=== PATIENT | female | born 1965 | race Caucasian/White ===

== ENCOUNTER → 2019-05-14 | Outpatient (CLI) | payer SELFPAY ==
--- NOTE | 2019-05-14 11:04 | Diagnostic Imaging Report ---
PROCEDURE: MR imaging cervical spine without contrast. TECHNIQUE: Multiplanar, multisequence MR imaging of the cervical spine was performed without contrast. INDICATION: Chronic shoulder pain. COMPARISON: No prior studies are available for comparison. FINDINGS: Curvature of the cervical spine is normal. There is minimal retrolisthesis of C5 on C6. Vertebral body marrow signal is normal. No marrow lesion is identified. There is generalized degenerative disc disease with variable disc space narrowing and desiccation, greatest at C5-C6 level. Cervical cord demonstrates homogeneous signal intensity and normal morphology. Craniocervical junction demonstrates some mild cerebellar tonsillar ectopia. C2-C3: Central canal and neural foramina are widely patent. C3-C4: Central canal and neural foramina appear widely patent. C4-C5: Minimal endplate osteophytes flatten the ventral thecal sac but central canal and neural foramina appear patent. C5-C6: Broad-based disc/osteophyte complex indents the ventral thecal sac and produces moderate central canal stenosis. Uncovertebral joint degenerative change also results in significant bilateral neural foraminal stenosis. C6-C7: Endplate osteophytes indent the ventral thecal sac. There is mild narrowing of the canal. There appears to be a fairly significant bilateral neural foraminal stenosis. C7-T1: No central canal or neural foraminal stenosis is identified. IMPRESSION: C5-C6 degenerative disc disease with fairly significant central canal and bilateral neural foraminal stenosis. There is also bilateral neural foraminal stenosis at C6-C7. Dictated by: Dictated on workstation # [id number]
== END ==
LOC: RAD 09:26
PROVIDERS: ATTEND Nurse Practitioner
DX: M25.519 Pain in unspecified shoulder (principal); G89.29 Other chronic pain; M48.02 Spinal stenosis, cervical region; M50.30 Other cervical disc degeneration, unspecified cervical region; R20.0 Anesthesia of skin
CPT/HCPCS: 72141

== ENCOUNTER → 2019-08-20 | Outpatient (CLI) | payer SELFPAY ==
[~2019-08-20] MED LIST: CATHETER FLUSH 10 ML SYR IV PRN; HOLD METFORMIN - RECEIVED CONTRAST 20 ML VIAL IV SCH; IOHEXOL 350 MG/ML 100 ML (OMNIPAQUE 350) VIAL IV ONE; NS 100 ML (IVPB) BAG IV ONE
[2019-08-20 13:41] LABS: POTASSIUM 3.9 MMOL/L (3.6-5.0)
[2019-08-20 13:42] LABS: ALBUMIN 4.3 GM/DL (3.2-4.5); BILIRUBIN,TOTAL 0.5 MG/DL (0.1-1.0); CALCIUM 10.1 MG/DL (8.5-10.1); CREATININE SERUM 1.12 MG/DL (0.60-1.30); TOTAL PROTEIN 8.1 GM/DL (6.4-8.2)
--- NOTE | 2019-08-20 15:32 | Diagnostic Imaging Report ---
PROCEDURE: CT abdomen and pelvis with contrast. TECHNIQUE: Multiple contiguous axial images were obtained through the abdomen and pelvis after administration of intravenous contrast. Auto Exposure Controls were utilized during the CT exam to meet ALARA standards for radiation dose reduction. INDICATION: Left lower quadrant pain two days duration, elevated temperature. FINDINGS: There is focal patchy hypodensity and hypoenhancement in the lower pole of the left kidney without a discrete fluid collection most suggestive of focal pyelonephritis. The interpolar and upper pole of the left kidney as well as contralateral right kidney appear normal. No radiodense stone at this post contrast enhanced study and no hydronephrosis. There is diverticulosis of the sigmoid colon but no convincing evidence for diverticulitis. Some mild left perinephric edema extends inferior to the left kidney. There is thickening of Gerota's fascia. The liver appears unremarkable. An incidental variant with Phrygian cap at the gallbladder fundus noted. No gallstone or bile duct dilatation. The spleen and adrenals are negative. The pancreas is negative. There is a left ovarian cyst measuring 3.0 cm showing no obvious complexity. The appendix is normal. There is some fluid within the rectal vault. There is fibroid off the uterine fundus eccentric to the left. No free air or bowel obstruction. IMPRESSION: 1. The findings are most consistent with focal pyelonephritis to the lower pole of the left kidney without visualized stone or obstruction. No abscess. 2. Diverticulosis of the sigmoid without features of acute diverticulitis. 3. Left ovarian cyst and fibroid uterus with normal appendix. Report was called and faxed to [facility] in [place], [place] for Jun Alberto APRN at 3:12 p.m., by jase (for EVELINA). Dictated by: Dictated on workstation # [id number]
== END ==
LOC: RAD FS 12:42
PROVIDERS: ATTEND Nurse Practitioner Family
DX: N83.202 Unspecified ovarian cyst, left side (principal); D25.9 Leiomyoma of uterus, unspecified; K57.30 Diverticulosis of large intestine without perforation or abscess without bleeding
CPT/HCPCS: 36415; 74177; 80053

== ENCOUNTER 2019-10-15 14:07 | Inpatient (IN) | payer SELFPAY ==
[~2019-10-15] VITALS: Ht 167 cm; Wt 99.9 kg
[2019-10-15] VITALS (14 sets, daily range): BP systolic 99–144; BP diastolic 61–92
[2019-10-15] MEDS ORDERED: NS IV 1000 ML 1,000 ML IV SCH (14:15)
[2019-10-15] MEDS ORDERED: RX-ALBUTEROL INHALER (PROAIR) 8.5 GM IH STA (14:16)
[2019-10-15] MEDS ORDERED: ACETAMINOPHEN 500 MG TAB (TYLENOL) PO ONE (14:30)
[2019-10-15] MEDS ORDERED: RT-ALBUTEROL SULF 2.5 MG/3 ML PRE-MIX VIAL INH STA (14:35)
[2019-10-15] MEDS ORDERED: methylPREDNISolone 125 MG (Solu-MEDROL) VIAL IVP ONE (14:45)
[2019-10-15] MEDS ORDERED: RT-ALBUTEROL/IPRATROPIUM 3 ML (DUONEB) VIAL INH ONE (14:45)
[2019-10-15] MEDS ORDERED: cefTRIAXone FOR IV USE 1,000 MG in WATER (STERILE) FOR INJECTION 10 ML IV ONE (15:00)
[2019-10-15 15:07] LABS: BASOPHILS % (AUTO) 0 % (0-10); EOSINOPHILS % (AUTO) 0 % (0-10); HEMATOCRIT 35 % (35-52); HEMOGLOBIN 11.9 G/DL (11.5-16.0); LYMPHOCYTES # (AUTO) 2.1 X 10^3 (1.0-4.0); LYMPHOCYTES % (AUTO) 9 % (12-44); MEAN CORPUSCULAR HEMOGLOBIN 32 PG (25-34); MEAN CORPUSCULAR HGB CONC 34 G/DL (32-36); MEAN CORPUSCULAR VOLUME 95 FL (80-99); MONOCYTES # (AUTO) 2.1 X 10^3 (0.0-1.0); MONOCYTES % (AUTO) 9 % (0-12); NEUTROPHILS # (AUTO) 18.6 X 10^3 (1.8-7.8); NEUTROPHILS % (AUTO) 81 % (42-75); PLATELET COUNT 362 10^3/uL (130-400); RED CELL DISTRIBUTION WIDTH 14.3 % (10.0-14.5); WHITE BLOOD COUNT 22.9 10^3/uL (4.3-11.0)
[2019-10-15 15:08] LABS: CLARITY,URINE CLOUDY; COLOR,URINE YELLOW; GLUCOSE, URINE (UA) NEGATIVE (NEGATIVE); KETONES,URINE 1+ (NEGATIVE); LEUKOCYTE ESTERASE ,URINE 3+ (NEGATIVE); NITRITE,URINE NEGATIVE (NEGATIVE); PROTEIN,URINE 3+ (NEGATIVE)
[2019-10-15 15:21] LABS: ALBUMIN 3.4 GM/DL (3.2-4.5); POTASSIUM 3.8 MMOL/L (3.6-5.0)
[2019-10-15 15:22] LABS: INR 1.2 (0.8-1.4); PROTHROMBIN TIME PATIENT 15.7 SEC (12.2-14.7)
[2019-10-15 15:24] LABS: TOTAL PROTEIN 7.6 GM/DL (6.4-8.2)
[2019-10-15 15:26] LABS: BILIRUBIN,TOTAL 0.8 MG/DL (0.1-1.0)
--- OUTSIDE RECORDS SUMMARY | 2019-10-15 15:26 | XMS REPORT | Continuity of Care Document ---
Author Organization Unknown Address Unknown Phone Unavailable Allergies Active Description Code Type Severity Reaction Onset Reported/Identified Relationship to Patient Clinical Status Yes No Allergy Information Available [id number] Drug Allergy Unknown N/A 020 Medications There is no data. Problems Date Dx Coded Attending Type Code Diagnosis Diagnosed By 05/19/2019 VAHID MCKEONA Sherwin NODULIZER Ot G89.29 OTHER CHRONIC PAIN 05/19/2019 PAULINA MCKEONNDA Sherwin NODULIZER Ot M25.519 PAIN IN UNSPECIFIED SHOULDER 05/19/2019 LINDA MYRON L NODULIZER Ot M48.02 SPINAL STENOSIS, CERVICAL REGION 05/19/2019 LINDA MYRON L NODULIZER Ot M50.30 OTHER CERVICAL DISC DEGENERATION, UNSP C 05/19/2019 KELLSTADT MYRON L NODULIZER Ot R20.0 ANESTHESIA OF SKIN 05/20/2019 PAULINA MCKEONNDA Sherwin NODULIZER Ot G89.29 OTHER CHRONIC PAIN 05/20/2019 RICKYTARULA MYRON L NODULIZER Ot M25.519 PAIN IN UNSPECIFIED SHOULDER 05/20/2019 PRAVEENLSTARULA MYRON L NODULIZER Ot M48.02 SPINAL STENOSIS, CERVICAL REGION 05/20/2019 PRAVEENLSTARULA MYRON L NODULIZER Ot M50.30 OTHER CERVICAL DISC DEGENERATION, UNSP C 05/20/2019 LINDA MYRON L NODULIZER Ot R20.0 ANESTHESIA OF SKIN 08/21/2019 JOSE R BYRNE NODULIZER Ot D25.9 LEIOMYOMA OF UTERUS, UNSPECIFIED 08/21/2019 JOSE R BYRNEP Ot K57.30 DVRTCLOS OF LG INT W/O PERFORATION OR AB 08/21/2019 JOSE R BYRNE NODULIZER Ot N83.20 2 UNSPECIFIED OVARIAN CYST, LEFT SIDE Procedures There is no data. Results Test Result Range PDM - 09 PANEL (PROFILE 1) - 09/11/18 10 :19 Creatinine 41.3 mg/dL > or = 20.0 pH 6.42 4.5 - 9.0 Oxidant NEGATIVE mcg/mL <200 Amphetamines NEGATIVE ng/mL <500 medMATCH Amphetamines CONSISTENT NRG Benzodiazepines NEGATIVE ng/mL <100 medMATCH Benzodiazepines CONSISTENT NRG Marijuana Metabolite NEGATIVE ng/mL <20 medMATCH Marijuana Metab CONSISTENT NRG Cocaine Metabolite NEGATIVE ng/mL <150 medMATCH Cocaine Metab CONSISTENT NRG Opiates POSITIVE ng/mL <100 Oxycodone NEGATIVE ng/mL <100 medMATCH Oxycodone CONSISTENT NRG COMMENT NRG Codeine NEGATIVE ng/mL <50 medMATCH Codeine CONSISTENT NRG Hydrocodone 1379 ng/mL <50 medMATCH Hydrocodone INCONSISTENT NRG Hydromorphone 829 ng/mL <50 medMATCH Hydromorphone INCONSISTENT NRG Morphine NEGATIVE ng/mL <50 medMATCH Morphine CONSISTENT NRG Norhydrocodone 3671 ng/mL <50 medMATCH Norhydrocodone INCONSISTENT NR G Barbiturates NEGATIVE ng/mL <300 medMATCH Barbiturates CONSISTENT NRG Methadone Metabolite NEGATIVE ng/mL <100 medMATCH Methadone Metab CONSISTENT NRG Phencyclidine NEGATIVE ng/mL <25 medMATCH Phencyclidine CONSISTENT NRG CBC - 11/22/18 10:19 WHITE BLOOD CELL COUNT 8.0 Thousand/uL 3 .8-10.8 RED BLOOD CELL COUNT 4.56 Million/uL 3.8 0-5.10 HEMOGLOBIN 14.8 g/dL 11.7-15.5 HEMATOCRIT 44.4 % 35.0-45.0 MCV 97.4 fL 80.0-100.0 MCH 32.5 pg 27.0-33.0 MCHC 33.3 g/dL 32.0-36.0 RDW 12.2 % 11.0-15.0 PLATELET COUNT 262 Thousand/uL 140-400 MPV 10.9 fL 7.5-12.5 ABSOLUTE NEUTROPHILS 4848 cells/uL 1500- 7800 ABSOLUTE LYMPHOCYTES 2504 cells/uL 850-3 900 ABSOLUTE MONOCYTES 512 cells/uL 200-950 ABSOLUTE EOSINOPHILS 72 cells/uL 15-500 ABSOLUTE BASOPHILS 64 cells/uL 0-200 NEUTROPHILS 60.6 % NRG LYMPHOCYTES 31.3 % NRG MONOCYTES 6.4 % NRG EOSINOPHILS 0.9 % NRG BASOPHILS 0.8 % NRG TSH w/ FREE T4 - 04/30/19 07:48 TSH 0.95 mIU/L NRG T4, FREE 1.1 ng/dL 0.8-1.8 LIPID PANEL - 04/30/19 07:48 CHOLESTEROL, TOTAL 200 mg/dL <200 HDL CHOLESTEROL 63 mg/dL >50 TRIGLYCERIDES 133 mg/dL <150 LDL-CHOLESTEROL 112 mg/dL (calc) NRG CHOL/HDLC RATIO 3.2 (calc) <5.0 NON HDL CHOLESTEROL 137 mg/dL (calc) <13 0 CMP - 04/30/19 07:48 GLUCOSE 98 mg/dL 65-99 UREA NITROGEN (BUN) 17 mg/dL 7-25 CREATININE 0.71 mg/dL 0.50-1.05 eGFR NON-AFR. [place] 97 mL/min/1.73m2 > OR = 60 eGFR 113 mL/min/1.73m2 > OR = 60 BUN/CREATININE RATIO NOT APPLICABLE (calc) 6-22 SODIUM 142 mmol/L 135-146 POTASSIUM 4.3 mmol/L 3.5-5.3 CHLORIDE 107 mmol/L 98-110 CARBON DIOXIDE 33 mmol/L 20-32 CALCIUM 9.7 mg/dL 8.6-10.4 PROTEIN, TOTAL 6.2 g/dL 6.1-8.1 ALBUMIN 4.1 g/dL 3.6-5.1 GLOBULIN 2.1 g/dL (calc) 1.9-3.7 ALBUMIN/GLOBULIN RATIO 2.0 (calc) 1.0-2. 5 BILIRUBIN, TOTAL 0.5 mg/dL 0.2-1.2 ALKALINE PHOSPHATASE 56 U/L 33-130 AST 13 U/L 10-35 ALT 16 U/L 6-29 CBC - 04/30/19 07:48 WHITE BLOOD CELL COUNT 7.1 Thousand/uL 3 .8-10.8 RED BLOOD CELL COUNT 4.35 Million/uL 3.8 0-5.10 HEMOGLOBIN 14.4 g/dL 11.7-15.5 HEMATOCRIT 42.7 % 35.0-45.0 MCV 98.2 fL 80.0-100.0 MCH 33.1 pg 27.0-33.0 MCHC 33.7 g/dL 32.0-36.0 RDW 11.9 % 11.0-15.0 PLATELET COUNT 281 Thousand/uL 140-400 MPV 10.7 fL 7.5-12.5 ABSOLUTE NEUTROPHILS 3564 cells/uL 1500- 7800 ABSOLUTE LYMPHOCYTES 2805 cells/uL 850-3 900 ABSOLUTE MONOCYTES 462 cells/uL 200-950 ABSOLUTE EOSINOPHILS 213 cells/uL 15-500 ABSOLUTE BASOPHILS 57 cells/uL 0-200 NEUTROPHILS 50.2 % NRG LYMPHOCYTES 39.5 % NRG MONOCYTES 6.5 % NRG EOSINOPHILS 3.0 % NRG BASOPHILS 0.8 % NRG LIPASE - 08/20/19 12:06 LIPASE 9 U/L 7-60 CULTURE, URINE - 08/20/19 12:06 CULTURE, URINE, ROUTINE SEE NOTE NRG Comprehensive metabolic panel - 08/20/19 12:57 Serum or plasma sodium measurement (moles/volume) 138 mmol/L 135-145 Serum or plasma potassium measurement (moles/volume) 3.9 mmol/L 3.6-5.0 Serum or plasma chloride measurement (moles/volume) 98 mmol/L 98-107 Carbon dioxide 24 mmol/L 21-32 Serum or plasma anion gap determination (moles/volume) 16 mmol/L 5-14 Serum or plasma urea nitrogen measurement (mass/volume ) 20 mg/dL 7-18 Serum or plasma creatinine measurement (mass/volume) 1.12 mg/dL 0.60-1.30 Serum or plasma urea nitrogen/creatinine mass ratio 18 NRG Serum or plasma creatinine measurement w ith calculation of estimated glomerular filtration rate 51 NRG Serum or plasma glucose measurement (mass/volume) 103 mg/dL 70-105 Serum or plasma calcium measurement (mass/volume) 10.1 mg/dL 8.5-10.1 Serum or plasma total bilirubin measurement (mass/volu me) 0.5 mg/dL 0.1-1.0 Serum or plasma alkaline phosphatase get surement (enzymatic activity/volume) 80 U/L 40-136 Serum or plasma aspartate aminotransfera se measurement (enzymatic activity/volume) 16 U/L 5-34 Serum or plasma alanine aminotransferase measurement (enzymatic activity/volume) 19 U/L 0-55 Serum or plasma protein measurement (mass/volume) 8.1 g/dL 6.4-8.2 Serum or plasma albumin measurement (mass/volume) 4.3 g/dL 3.2-4.5 CALCIUM CORRECTED 9.9 mg/dL 8.5-10.1 CULTURE, URINE - 08/22/19 06:53 CULTURE, URINE, ROUTINE SEE NOTE NRG CMP - 08/22/19 16:09 GLUCOSE 105 mg/dL 65-99 UREA NITROGEN (BUN) 36 mg/dL 7-25 CREATININE 1.08 mg/dL 0.50-1.05 eGFR NON-AFR. [place] 59 mL/min/1.73m2 > OR = 60 eGFR 68 mL/min/1.73m2 > OR = 60 BUN/CREATININE RATIO 33 (calc) 6-22 SODIUM 137 mmol/L 135-146 POTASSIUM 3.4 mmol/L 3.5-5.3 CHLORIDE 105 mmol/L 98-110 CARBON DIOXIDE 22 mmol/L 20-32 CALCIUM 9.1 mg/dL 8.6-10.4 PROTEIN, TOTAL 6.4 g/dL 6.1-8.1 ALBUMIN 3.8 g/dL 3.6-5.1 GLOBULIN 2.6 g/dL (calc) 1.9-3.7 ALBUMIN/GLOBULIN RATIO 1.5 (calc) 1.0-2. 5 BILIRUBIN, TOTAL 0.3 mg/dL 0.2-1.2 ALKALINE PHOSPHATASE 57 U/L 37-153 AST 13 U/L 10-35 ALT 17 U/L 6-29 CBC w/MANUAL DIFF - 08/22/19 16:09 WHITE BLOOD CELL COUNT 13.8 Thousand/uL 3.8-10.8 RED BLOOD CELL COUNT 4.10 Million/uL 3.8 0-5.10 HEMOGLOBIN 13.2 g/dL 11.7-15.5 HEMATOCRIT 40.1 % 35.0-45.0 MCV 97.8 fL 80.0-100.0 MCH 32.2 pg 27.0-33.0 MCHC 32.9 g/dL 32.0-36.0 RDW 12.2 % 11.0-15.0 PLATELET COUNT 240 Thousand/uL 140-400 MPV 11.2 fL 7.5-12.5 ABSOLUTE NEUTROPHILS 9839 cells/uL 1500- 7800 ABSOLUTE LYMPHOCYTES 2870 cells/uL 850-3 900 ABSOLUTE MONOCYTES 1049 cells/uL 200-950 ABSOLUTE EOSINOPHILS 14 cells/uL 15-500 ABSOLUTE BASOPHILS 28 cells/uL 0-200 NEUTROPHILS 71.3 % NRG LYMPHOCYTES 20.8 % NRG MONOCYTES 7.6 % NRG EOSINOPHILS 0.1 % NRG BASOPHILS 0.2 % NRG COMMENT(S) NRG CBC - 08/27/19 12:02 WHITE BLOOD CELL COUNT 13.8 Thousand/uL 3.8-10.8 RED BLOOD CELL COUNT 3.85 Million/uL 3.8 0-5.10 HEMOGLOBIN 12.5 g/dL 11.7-15.5 HEMATOCRIT 36.9 % 35.0-45.0 MCV 95.8 fL 80.0-100.0 MCH 32.5 pg 27.0-33.0 MCHC 33.9 g/dL 32.0-36.0 RDW 11.7 % 11.0-15.0 PLATELET COUNT 435 Thousand/uL 140-400 MPV 10.3 fL 7.5-12.5 ABSOLUTE NEUTROPHILS 05068 cells/uL 1500 -7800 ABSOLUTE LYMPHOCYTES 2167 cells/uL 850-3 900 ABSOLUTE MONOCYTES 745 cells/uL 200-950 ABSOLUTE EOSINOPHILS 97 cells/uL 15-500 ABSOLUTE BASOPHILS 41 cells/uL 0-200 NEUTROPHILS 77.9 % NRG LYMPHOCYTES 15.7 % NRG MONOCYTES 5.4 % NRG EOSINOPHILS 0.7 % NRG BASOPHILS 0.3 % NRG CMP - 08/29/19 12:30 GLUCOSE 90 mg/dL 65-99 UREA NITROGEN (BUN) 15 mg/dL 7-25 CREATININE 1.09 mg/dL 0.50-1.05 eGFR NON-AFR. [place] 58 mL/min/1.73m2 > OR = 60 eGFR 67 mL/min/1.73m2 > OR = 60 BUN/CREATININE RATIO 14 (calc) 6-22 SODIUM 137 mmol/L 135-146 POTASSIUM 4.3 mmol/L 3.5-5.3 CHLORIDE 102 mmol/L 98-110 CARBON DIOXIDE 24 mmol/L 20-32 CALCIUM 9.5 mg/dL 8.6-10.4 PROTEIN, TOTAL 6.5 g/dL 6.1-8.1 ALBUMIN 3.5 g/dL 3.6-5.1 GLOBULIN 3.0 g/dL (calc) 1.9-3.7 ALBUMIN/GLOBULIN RATIO 1.2 (calc) 1.0-2. 5 BILIRUBIN, TOTAL 0.3 mg/dL 0.2-1.2 ALKALINE PHOSPHATASE 82 U/L 37-153 AST 14 U/L 10-35 ALT 18 U/L 6-29 CBC w/MANUAL DIFF - 08/29/19 12:30 WHITE BLOOD CELL COUNT 12.1 Thousand/uL 3.8-10.8 RED BLOOD CELL COUNT 3.98 Million/uL 3.8 0-5.10 HEMOGLOBIN 12.7 g/dL 11.7-15.5 HEMATOCRIT 38.4 % 35.0-45.0 MCV 96.5 fL 80.0-100.0 MCH 31.9 pg 27.0-33.0 MCHC 33.1 g/dL 32.0-36.0 RDW 12.0 % 11.0-15.0 PLATELET COUNT 514 Thousand/uL 140-400 MPV 9.9 fL 7.5-12.5 COMMENT(S) NRG CULTURE, URINE - 08/29/19 12:30 CULTURE, URINE, ROUTINE NRG PDM - 09 PANEL (PROFILE 1) - 08/29/19 12 :30 Prescribed Drug 1 Hydrocodone NRG Creatinine 116.6 mg/dL > or = 20.0 pH 6.7 4.5-9.0 Oxidant NEGATIVE mcg/mL <200 Amphetamines NEGATIVE ng/mL <500 medMATCH Amphetamines CONSISTENT NRG Benzodiazepines NEGATIVE ng/mL <100 medMATCH Benzodiazepines CONSISTENT NRG Marijuana Metabolite NEGATIVE ng/mL <20 medMATCH Marijuana Metab CONSISTENT NRG Cocaine Metabolite NEGATIVE ng/mL <150 medMATCH Cocaine Metab CONSISTENT NRG Opiates POSITIVE ng/mL <100 Oxycodone NEGATIVE ng/mL <100 medMATCH Oxycodone CONSISTENT NRG COMMENT NRG Codeine NEGATIVE ng/mL <50 medMATCH Codeine CONSISTENT NRG Hydrocodone 1671 ng/mL <50 medMATCH Hydrocodone CONSISTENT NRG Hydromorphone 646 ng/mL <50 medMATCH Hydromorphone CONSISTENT NRG Morphine NEGATIVE ng/mL <50 medMATCH Morphine CONSISTENT NRG Norhydrocodone 685 ng/mL <50 medMATCH Norhydrocodone CONSISTENT NRG Barbiturates NEGATIVE ng/mL <300 medMATCH Barbiturates CONSISTENT NRG Methadone Metabolite NEGATIVE ng/mL <100 medMATCH Methadone Metab CONSISTENT NRG Phencyclidine NEGATIVE ng/mL <25 medMATCH Phencyclidine CONSISTENT NRG DIFFERENTIAL, MANUAL - 08/29/19 12:30 ABSOLUTE NEUTROPHILS 8603 cells/uL 1500- 7800 ABSOLUTE MONOCYTES 932 cells/uL 200-950 ABSOLUTE EOSINOPHILS 121 cells/uL 15-500 ABSOLUTE BASOPHILS 0 cells/uL 0-200 NEUTROPHILS 71.1 % NRG LYMPHOCYTES 19.2 % NRG MONOCYTES 7.7 % NRG EOSINOPHILS 1.0 % NRG BASOPHILS 0 % NRG ABSOLUTE METAMYELOCYTES 121 cells/uL ABSOLUTE LYMPHOCYTES 2323 cells/uL 850-3 900 METAMYELOCYTES 1.0 % NRG Encounters ACCT No. Visit Date/Time Discharge Status Pt. Type Provider Facility Loc./Unit Complaint [id number] 08/29/2019 11:40:00 08/29/2019 23:59:5 9 CLS Outpatient MYRON MCKEON [facility] [id number] 08/29/2019 11:40:00 Document Registration [id number] 08/27/2019 11:40:00 Document Registration [id number] 08/22/2019 16:00:00 Document Registration [id number] 08/21/2019 16:20:00 Document Registration [id number] 08/20/2019 10:00:00 Document Registration [id number] 04/30/2019 07:00:00 Document Registration [id number] 11/22/2018 10:00:00 Document Registration [id number] 09/11/2018 10:20:00 Document Registration [id number] 08/20/2019 12:42:00 020 23:59:59 CLS Outpatient JOSE R BYRNE [facility] LAB FS R10.32 [id number] 05/14/2019 09:26:00 020 23:59:59 CLS Outpatient MYRON MCKEON [facility] RAD CHRONIC SHOULDE R PAIN
--- OUTSIDE RECORDS SUMMARY | 2019-10-15 15:26 | XMS REPORT ---
Author Author Melissa BYRNE Organization [facility] Address [address] [place] [address] Care Team Providers Care Saw Edge Fuser Circular Name Role Phone CINDY BYRNE Unavailable PROBLEMS Type Condition ICD9-CM Code RAY11-UZ Code Onset Dates Condition S tatus SNOMED Code Problem Right arm pain 729.5 Oct, 0 28 [id number] Problem OME (otitis media with effusion) 381.4 May, 0 841944640 Problem Helicobacter pylori (H. pylori) 041.86 08 Dec, 2009 0 52829184 Problem Chronic migraine without aur a without status migrainosus, not intractable 346.70 Sep, 0 [id number] Problem Well adult [id number] Mar, 0 336732 003 Problem Dysmenorrhea 625.3 Feb, 0 2665 42082 Problem COPD (chronic obstructive pulmonary disease) 496 Sep, 0 28267108 Problem Dysmenorrhea N94.6 Feb, 0 2665 60868 Problem OME (otitis media with effusion) H65.90 May, 0 700157809 Problem HTN (hypertension) I10 Jul, 0 10756899 Problem Right arm pain M79.601 Oct, 0 28 5667422 Problem Acute sinusitis J01.90 May, 0 1 6017798 Problem Hypothyroidism E03.9 Sep, 0 40 049934 Problem Helicobacter pylori (H. pylori) A04.8 Dec, 0 43734858 Problem Chronic migraine without aur a without status migrainosus, not intractable G43.709 Sep, 0 [id number] Problem Other chronic pain G89.29 Active 8 3274149 Problem Hypertension I10 Active 9303386 3 Problem HTN (hypertension) 401.9 Jul, 0 29626144 Problem Stress incontinence in female N39.3 Active 50857857 Problem Hypothyroidism 244.9 Sep, 0 40 618024 Problem Acute sinusitis 461.9 May, 0 1 8853335 Problem Chronic shoulder pain M25.519 Active 743055383 Problem Abnormal drug screen R89.2 Active 148724917 Problem COPD bronchitis J44.9 Active 1364 5005 Problem Insomnia G47.00 Active 942470048 ALLERGIES No Information ENCOUNTERS Encounter Location Date Diagnosis [facility] [address] [address] Nov, Right shoulder pain M25.511 [facility] [address] [address] Nov, [address] [address] Nov, Right shoulder pain M25.[address] [address] Nov, Stress incontinence in female N39.3 ; Chronic shoulder pain M25.519 ; Hypothyroidism E03.9 ; Encounter for immunization Z23 ; Hypertension I10 and Insomnia G47.00 [facility] [address] [address] Nov, Right shoulder pain M25.[address] [address] Nov, [address] [address] Nov, Right shoulder pain M25.511 ; Finger numbness R20.0 ; Hypothyroidism E03.9 ; COPD bronchitis J44.9 ; Insomnia G47.00 and Hypertension I10 [address] [address] Oct, [address] [address] Oct, Chronic shoulder pain M25.[address] [address] Oct, Chronic shoulder pain M25.[address] [address] Sep, Chronic shoulder pain M25.519 [facility] [address] [address] Sep, [address] [address] August[facility] [address] [place] [address] August, Abnormal drug screen R89.2 and Pain in unspecified joint M25.50 [facility] [place] [address] [place] [address] August, Chronic shoulder pain M25.519 and Abnormal drug screen R89.2 [facility] [address] [address] Jul, Chronic shoulder pain M25.519 [facility] [id number] [place] [address] Jul, [facility] [address] [address] Jun, Chronic shoulder pain M25.519 [facility] [id number] [place] [address] May, Chronic shoulder pain M25.519 [facility] [address] [address] May, [facility] [address] [address] Apr, Chronic shoulder pain M25.519 [facility] [address] [facility] [id number] [place] [address] Apr, [facility] [address] [facility] [id number] [place] [address] Apr, [facility] [address] [address] Apr, [facility] [id number] [place] [address] Apr, Other chronic pain G89.29 and Pain in unspecified joint M25.50 [facility] [address] [id number] [address] [place] [address] Mar, [facility] [address] [facility] [id number] [place] [address] Mar, [facility] [address] [facility] [id number] [place] [address] Nov, [facility] [address] [facility] [id number] [place] [address] Sep, IMMUNIZATIONS No Known Immunizations SOCIAL HISTORY Never Assessed REASON FOR VISIT Waiting for call back PLAN OF CARE VITAL SIGNS MEDICATIONS Medication Instructions Dosage Frequency Start Date End Date Duration S tatus [place] 5-325 MG Orally every 8 hours 1 tablet as needed 8h 22 r, 2018 28 days Active RESULTS No Results PROCEDURES No Known procedures INSTRUCTIONS MEDICATIONS ADMINISTERED No Known Medications MEDICAL (GENERAL) HISTORY Type Description Date Medical History hypothyroidism Medical History COPD Medical History H.pylori Medical History Hypertension Medical History migraines Surgical History tubal 1987 Surgical History hernia repair as Surgical History oral surgery Hospitalization History tubal
[2019-10-15 15:27] LABS: CREATININE SERUM 1.3 MG/DL (0.60-1.30)
[2019-10-15 15:37] LABS: RBC,URINE 50-100 /HPF
[2019-10-15 15:38] LABS: BACTERIA,URINE LARGE /HPF; WBC,URINE TNTC /HPF
[2019-10-15 15:39] LABS: BILIRUBIN,URINE 2+ (NEGATIVE)
[2019-10-15 15:46] LABS: LYMPHOCYTES % (MANUAL) 8 %; MONOCYTES % (MANUAL) 7 %; NEUTROPHILS % (MANUAL) 85 %; PLATELET CLUMPS SLIGHT; TOXIC GRANULATION/VACUOLAZATIO 1+
--- NOTE | 2019-10-15 16:15 | Diagnostic Imaging Report ---
CLINICAL INDICATION: Patient with shortness of air. EXAM: Portable chest x-ray upright view. COMPARISONS: None. FINDINGS: There is mild airspace opacities in both lung bases which may represent atelectasis. There is no definite significant lung infiltrate seen. There is no pleural effusion or pneumothorax. Pulmonary vasculature and cardiac silhouettes within normal limits. There are small spurs involving the thoracic spine. IMPRESSION: 1. Likely mild bibasilar atelectasis. There is no radiographic evidence of acute cardiopulmonary process. Dictated by: Dictated on workstation # [id number]
--- NOTE | 2019-10-15 16:29 | ED General ---
General Chief Complaint: Respiratory Problems Stated Complaint: SOA Nursing Triage Note: PATIENT C/O SOB WITH HX OF COPD, FEVER AND MALAISE SINCE SUNDAY LAST WEEK. WAS SEEN AND SWABED FOR COVID YESTERDAY. STATES LAST TIME SHE WAS THIS SICK SHE HAD A UTI. Nursing Sepsis Screen: Possible Sepsis Risk Source of Information: Patient Exam Limitations: No Limitations History of Present Illness Date Seen by Provider: Oct 15, 2019 Time Seen by Provider: 14:08 Initial Comments This 54-year-old woman presents to the emergency room with fever and respiratory distress. She was tested for COVID-19 yesterday at the [facility] clinic in [place]. Results are not yet back. She is very tight and wheezing upon presentation. She reports the last time she was sick like this with fever and dyspnea she had a bad urinary tract infection. She does continue to smoke. She uses supplemental oxygen at home but did not have a portable oxygen tank in route. She used a nebulizer treatment this morning Allergies and Home Medications Allergies Coded Allergies: Penicillins (Verified Adverse Reaction, Unknown, Abdominal Pain, 10/15/19) amoxicillin (Verified Adverse Reaction, Unknown, Abdominal Pain, 10/15/19) Patient Home Medication List Home Medication List Reviewed: Yes Review of Systems Review of Systems Constitutional: see HPI EENTM: no symptoms reported Respiratory: see HPI Cardiovascular: no symptoms reported Gastrointestinal: no symptoms reported Genitourinary: see HPI : No Musculoskeletal: no symptoms reported Skin: no symptoms reported Psychiatric/Neurological: No Symptoms Reported Hematologic/Lymphatic: No Symptoms Reported Immunological/Allergic: no symptoms reported Past Mqvoaan-Mugdpt-Zealtv Hx Past Med/Social Hx: Reviewed Nursing Past Med/Soc Hx Patient Social History Alcohol Use: Rarely Uses Recreational Drug Use: No Smoking Status: Current Everyday Smoker Type Used: Cigarettes Recent Foreign Travel: No Contact w/Someone Who Travel: No Recent Infectious Disease Expo: No Recent Hopitalizations: No Physical Abuse: No Sexual Abuse: No Mistreated: No Fear: No Seasonal Allergies Seasonal Allergies: Yes Past Medical History Surgeries: Yes Tubal Ligation Respiratory: Yes (uses supplemental oxygen at home via nasal cannula) COPD Currently Using CPAP: No Currently Using BIPAP: No Cardiac: Yes Hypertension 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 oz. kg; 35.00 BMI Method: General Appearance: WD/WN, Moderate Distress HEENT: PERRL/EOMI, Normal ENT Inspection Neck: Normal Inspection; No JVD Respiratory: Lungs Clear, Normal Breath Sounds, No Accessory Muscle Use, No Respiratory Distress Cardiovascular: No Edema, No Murmur, Tachycardia Gastrointestinal: Normal Bowel Sounds, Non Tender, Soft Extremity: Normal Inspection, Non Tender, No Calf Tenderness, No Pedal Edema Neurologic/Psychiatric: Alert, Oriented x3, No Motor/Sensory Deficits, Normal Mood/Affect, strap stitcher II-XII Norm as Tested Skin: normal color, warm/dry Focused Exam Lactate Level 10/15/19 14:30: Lactic Acid Level 1.93 Lactic Acid Level Laboratory Tests Test 10/15/19 14:30 Lactic Acid Level 1.93 MMOL/L (0.50-2.00) Progress/Results/Core Measures Suspected Sepsis Recent Fever Within 48 Hours: Yes Infection Criteria Present: Suspected New Infection New/Unexplained Altered Menta: No Sepsis Screen: Possible Sepsis Risk SIRS Temperature: Pulse: 128 Respiratory Rate: 24 Laboratory Tests 10/15/19 14:20: White Blood Count 22.9H Blood Pressure 141 /83 Mean: 102 10/15/19 14:30: Lactic Acid Level 1.93 Laboratory Tests 10/15/19 14:20: Creatinine 1.30, INR Comment 1.2, Platelet Count 362, Total Bilirubin 0.8 Results/Orders Lab Results Laboratory Tests Test 10/15/19 14:20 10/15/19 14:30 10/15/19 14:50 Range/Units White Blood Count 22.9 H 4.3-11.0 10^3/uL Red Blood Count 3.73 L 4.35-5.85 10^6/uL Hemoglobin 11.9 11.5-16.0 G/DL Hematocrit 35 35-52 % Mean Corpuscular Volume 95 80-99 FL Mean Corpuscular Hemoglobin 32 25-34 PG Mean Corpuscular Hemoglobin Concent 34 32-36 G/DL Red Cell Distribution Width 14.3 10.0-14.5 % Platelet Count 362 130-400 10^3/uL Mean Platelet Volume 11.0 H 7.4-10.4 FL Neutrophils (%) (Auto) 81 H 42-75 % Lymphocytes (%) (Auto) 9 L 12-44 % Monocytes (%) (Auto) 9 0-12 % Eosinophils (%) (Auto) 0 0-10 % Basophils (%) (Auto) 0 0-10 % Neutrophils # (Auto) 18.6 H 1.8-7.8 X 10^3 Lymphocytes # (Auto) 2.1 1.0-4.0 X 10^3 Monocytes # (Auto) 2.1 H 0.0-1.0 X 10^3 Eosinophils # (Auto) 0.0 0.0-0.3 10^3/uL Basophils # (Auto) 0.0 0.0-0.1 10^3/uL Neutrophils % (Manual) 85 % Lymphocytes % (Manual) 8 % Monocytes % (Manual) 7 % Toxic Granulation 1+ Dohle Bodies SLIGHT Clumped Platelets SLIGHT Prothrombin Time 15.7 H 12.2-14.7 SEC INR Comment 1.2 0.8-1.4 Activated Partial Thromboplast Time 40 H 24-35 SEC Sodium Level 134 L 135-145 MMOL/L Potassium Level 3.8 3.6-5.0 MMOL/L Chloride Level 101 98-107 MMOL/L Carbon Dioxide Level 21 21-32 MMOL/L Anion Gap 12 5-14 MMOL/L Blood Urea Nitrogen 18 7-18 MG/DL Creatinine 1.30 0.60-1.30 MG/DL Estimat Glomerular Filtration Rate 43 BUN/Creatinine Ratio 14 Glucose Level 130 H 70-105 MG/DL Calcium Level 10.0 8.5-10.1 MG/DL Corrected Calcium 10.5 H 8.5-10.1 MG/DL Total Bilirubin 0.8 0.1-1.0 MG/DL Aspartate Amino Transf (AST/SGOT) 16 5-34 U/L Alanine Aminotransferase (ALT/SGPT) 17 0-55 U/L Alkaline Phosphatase 176 H 40-136 U/L Total Protein 7.6 6.4-8.2 GM/DL Albumin 3.4 3.2-4.5 GM/DL Lactic Acid Level 1.93 0.50-2.00 MMOL/L Urine Color YELLOW Urine Clarity CLOUDY Urine pH 6.0 5-9 Urine Specific [place] 1.025 H 1.016-1.022 Urine Protein 3+ H NEGATIVE Urine Glucose (UA) NEGATIVE NEGATIVE Urine Ketones 1+ H NEGATIVE Urine Nitrite NEGATIVE NEGATIVE Urine Bilirubin 2+ H NEGATIVE Urine Urobilinogen 2.0 < = 1.0 MG/DL Urine Leukocyte Esterase 3+ H NEGATIVE Urine RBC (Auto) 3+ H NEGATIVE Urine RBC 50-100 H /HPF Urine WBC TNTC H /HPF Urine Crystals NONE /LPF Urine Bacteria LARGE H /HPF Urine Casts NONE /LPF Urine Mucus NEGATIVE /LPF Urine Culture Indicated CULTURE PENDING Micro Results Microbiology 10/15/19 Influenza Types A,B Antigen (DUSTY) - Final, Complete My Orders Orders - CHANNING DELEON MD Cbc With Automated Diff (10/15/19 14:15) Comprehensive Metabolic Panel (10/15/19 14:15) Blood Culture (10/15/19 14:15) Sputum Culture (10/15/19 14:15) Urinalysis (10/15/19 14:15) Urine Culture (10/15/19 14:15) Protime With Inr (10/15/19 14:15) Partial Thromboplastin Time (10/15/19 14:15) Chest 1 View, Ap/Pa Only (10/15/19 14:15) Ed Iv/Invasive Line Start (10/15/19 14:15) Ed Iv/Invasive Line Start (10/15/19 14:15) Vital Signs Adult Sepsis Patie Q15M (10/15/19 14:15) O2 (10/15/19 14:15) Remove Rings In Anticipation O (10/15/19 14:15) Lactic Acid Analyzer (10/15/19 14:15) Influenza A And B Antigens (10/15/19 14:15) Ns Iv 1000 Ml (Sodium Chloride 0.9%) (10/15/19 14:15) Rx-Albuterol Inhaler (Rx-Proair) (10/15/19 14:16) Acetaminophen Tablet (Tylenol Tablet) (10/15/19 14:30) Albuterol Pre-Mix Nebs (Rt) (Proventil (10/15/19 14:35) Albuterol/Ipra Inhalation Soln (Duoneb I (10/15/19 14:45) Svn Small Volume Nebulizer (10/15/19 14:35) Svn Small Volume Nebulizer (10/15/19 14:35) Methylprednisolone Sod Succ (Solu-Medrol (10/15/19 14:45) Ceftriaxone For Iv Use (Rocephin For I (10/15/19 15:00) Manual Differential (10/15/19 14:20) Hs C Reactive Protein (10/15/19 15:37) Vital Signs/I&O 10/15/19 14:08 Temp 37.9 Pulse 128 Resp 24 B/P (MAP) 141/83 (102) Pulse Ox 98 O2 Delivery Nasal Cannula Capillary Refill : Less Than 3 Seconds Blood Pressure Mean: 102 Progress Note : Progress Note I contacted the [facility] clinic to inquire about the COVID test. Results are not yet known. Influenza screen was negative. Patient was worked up for sepsis and found to have a significant urinary tract infection. A liter of IV fluid was initiated in the ER. She received 4 puffs from an albuterol inhaler with a spacer. Unfortunately, she could not move much air out of the chamber to get effective dosing. This was followed by a DuoNeb treatment which seemed to help her much more. Oxygenation remained stable on nasal cannula. She received Rocephin as initial treatment for urinary tract infection after blood culture and lactic acid were drawn. Diagnostic Imaging Diagonstic Imaging: Xray Plain Films/CT/US/NM/MRI: chest Comments NAME: RADHA PHAN [facility] REC#: [id number] PT STATUS: REG ER : 1965 PHYSICIAN: CHANNING DELEON MD ADMIT DATE: 10/15/19/ER Draft Date of Exam:10/15/19 CHEST 1 VIEW, AP/PA ONLY CLINICAL INDICATION: Patient with shortness of air. EXAM: Portable chest x-ray upright view. COMPARISONS: None. FINDINGS: There is mild airspace opacities in both lung bases which may represent atelectasis. There is no definite significant lung infiltrate seen. There is no pleural effusion or pneumothorax. Pulmonary vasculature and cardiac silhouettes within normal limits. There are small spurs involving the thoracic spine. IMPRESSION: 1. Likely mild bibasilar atelectasis. There is no radiographic evidence of acute cardiopulmonary process. Dictated on workstation # [id number] Dict: 10/15/19 1613 Trans: 10/15/19 1615 [facility] [id number] Interpreted by: RAYMOND DOUGLAS MD Reviewed: Reviewed by Me Departure Communication (Admissions) Time/Spoke to Admitting Phy: 15:41 Dr. Gamino Impression Primary Impression: Sepsis Qualified Codes: A41.9 - Sepsis, unspecified organism Additional Impressions: Urinary tract infection Qualified Codes: N39.0 - Urinary tract infection, site not specified COPD with exacerbation Disposition: ADMITTED INPATIENT Condition: Improved Admissions Decision to Admit Reason: Admit from ER (General) Decision to Admit/Date: Oct 15, 2019 Time/Decision to Admit Time: 14:10 Departure-Patient Inst. Referrals: MYRON MCKEON (PCP) Primary Care Physician WILLIS MUSTAFA MD (Family) Primary Care Physician CHANNING DELEON MD Oct 15, 2019 16:29
--- OUTSIDE RECORDS SUMMARY | 2019-10-15 17:35 | XMS REPORT | Continuity of Care Document ---
Author Organization Unknown Address Unknown Phone Unavailable Allergies Active Description Code Type Severity Reaction Onset Reported/Identified Relationship to Patient Clinical Status Yes No Allergy Information Available [id number] Drug Allergy Unknown N/A 020 Medications There is no data. Problems Date Dx Coded Attending Type Code Diagnosis Diagnosed By 05/19/2019 VAHID MCKEONA Sherwin COLORIST FORMULATOR Ot G89.29 OTHER CHRONIC PAIN 05/19/2019 PAULINA MCKEONNDA Sherwin COLORIST FORMULATOR Ot M25.519 PAIN IN UNSPECIFIED SHOULDER 05/19/2019 LINDA MYRON L COLORIST FORMULATOR Ot M48.02 SPINAL STENOSIS, CERVICAL REGION 05/19/2019 LINDA MYRON L COLORIST FORMULATOR Ot M50.30 OTHER CERVICAL DISC DEGENERATION, UNSP C 05/19/2019 KELLSTADT MYRON L COLORIST FORMULATOR Ot R20.0 ANESTHESIA OF SKIN 05/20/2019 PAULINA MCKEONNDA Sherwin COLORIST FORMULATOR Ot G89.29 OTHER CHRONIC PAIN 05/20/2019 RICKYTARULA MYRON L COLORIST FORMULATOR Ot M25.519 PAIN IN UNSPECIFIED SHOULDER 05/20/2019 PRAVEENLSTARULA MYRON L COLORIST FORMULATOR Ot M48.02 SPINAL STENOSIS, CERVICAL REGION 05/20/2019 PRAVEENLSTARULA MYRON L COLORIST FORMULATOR Ot M50.30 OTHER CERVICAL DISC DEGENERATION, UNSP C 05/20/2019 LINDA MYRON L COLORIST FORMULATOR Ot R20.0 ANESTHESIA OF SKIN 08/21/2019 JOSE R BYRNE COLORIST FORMULATOR Ot D25.9 LEIOMYOMA OF UTERUS, UNSPECIFIED 08/21/2019 JOSE R BYRNEP Ot K57.30 DVRTCLOS OF LG INT W/O PERFORATION OR AB 08/21/2019 JOSE R BYRNE COLORIST FORMULATOR Ot N83.20 2 UNSPECIFIED OVARIAN CYST, LEFT [...] 7-25 CREATININE 0.71 mg/dL 0.50-1.05 eGFR NON-AFR. [place] 97 mL/min/1.73m2 > OR = 60 eGFR [...] 7-25 CREATININE 1.08 mg/dL 0.50-1.05 eGFR NON-AFR. [place] 59 mL/min/1.73m2 > OR = 60 eGFR [...] 140-400 MPV 10.3 fL 7.5-12.5 ABSOLUTE NEUTROPHILS 23845 cells/uL 1500 -7800 ABSOLUTE LYMPHOCYTES 2167 cells/uL [...] 7-25 CREATININE 1.09 mg/dL 0.50-1.05 eGFR NON-AFR. [place] 58 mL/min/1.73m2 > OR = 60 eGFR [...] Status Pt. Type Provider Facility Loc./Unit Complaint [id number] 08/29/2019 11:40:00 08/29/2019 23:59:5 9 CLS Outpatient MYRON MCKEON [facility] [id number] 08/29/2019 11:40:00 Document Registration [id number] 08/27/2019 11:40:00 Document Registration [id number] 08/22/2019 16:00:00 Document Registration [id number] 08/21/2019 16:20:00 Document Registration [id number] 08/20/2019 10:00:00 Document Registration [id number] 04/30/2019 07:00:00 Document Registration [id number] 11/22/2018 10:00:00 Document Registration [id number] 09/11/2018 10:20:00 Document Registration [id number] 08/20/2019 12:42:00 020 23:59:59 CLS Outpatient JOSE R BYRNE [facility] LAB FS R10.32 [id number] 05/14/2019 09:26:00 020 23:59:59 CLS Outpatient MYRON MCKEON [facility] RAD CHRONIC SHOULDE R PAIN
[2019-10-15] MEDS ORDERED: ACETAMINOPHEN 500 MG TAB (TYLENOL) PO PRN (18:15)
[2019-10-15] MEDS ORDERED: CATHETER FLUSH 10 ML SYR IV PRN (18:15)
[2019-10-15] MEDS ORDERED: RT-ALBUTEROL/IPRATROPIUM 3 ML (DUONEB) VIAL IH PRN (18:15)
[2019-10-15] MEDS: NS IV 1000 ML 1,000 ML IV SCH (18:52)
[2019-10-15] MEDS: ENOXAPARIN 40 MG/0.4 ML (LOVENOX) SYR SQ SCH (20:05)
[2019-10-15] MEDS: methylPREDNISolone 40 MG/ML (Solu-MEDROL) VIAL IV SCH (20:06)
[2019-10-15] MEDS: RT-ALBUTEROL INHALER HFA (VENTOLIN HFA) 8 GM IH SCH (21:25)
[2019-10-16] VITALS: BP 117/77
[2019-10-16 01:53] LABS: HEMOGLOBIN 10.1 G/DL (11.5-16.0); MEAN PLATELET VOLUME 10.6 FL (7.4-10.4); RED CELL DISTRIBUTION WIDTH 14.5 % (10.0-14.5); WHITE BLOOD COUNT 17.2 10^3/uL (4.3-11.0)
[2019-10-16] MEDS: NS IV 1000 ML 1,000 ML IV SCH ×4 (02:00→21:21)
[2019-10-16] MEDS: RT-ALBUTEROL INHALER HFA (VENTOLIN HFA) 8 GM IH SCH ×5 (02:10→22:43)
[2019-10-16 03:03] LABS: POTASSIUM 3.5 MMOL/L (3.6-5.0)
[2019-10-16 03:04] LABS: CALCIUM 9.3 MG/DL (8.5-10.1)
[2019-10-16 03:05] LABS: TOTAL PROTEIN 6.4 GM/DL (6.4-8.2)
[2019-10-16 03:07] LABS: BILIRUBIN,TOTAL 0.3 MG/DL (0.1-1.0)
[2019-10-16 03:09] LABS: CREATININE SERUM 1.42 MG/DL (0.60-1.30)
[2019-10-16 04:00] VITALS: BP 117/74
[2019-10-16] MEDS: methylPREDNISolone 40 MG/ML (Solu-MEDROL) VIAL IV SCH ×4 (04:26→22:24)
[2019-10-16 08:36] VITALS: BP 150/94
--- NOTE | 2019-10-16 08:37 | History & Physical ---
HPI History of Present Illness: 54 yo female came to the ER due to low oxygen saturation, shortness of breath and fever. She states she had a kidney infection in mid-August that she doesn't believe was completely treated. A week or so ago she started getting high fever up to 102 with no other symptoms, and she was triaged but told she didn't meet criteria for COVID and to monitor symptoms, she then started having cough and shortness of breath and went back and was tested on 10/13 outpatient (results still pending) and told to go to ER if she got worse, which she did. She has COPD and reports she had a similar episode including hypoxia and COPD exacerbation in the past when she had a UTI. She is feeling somewhat better today after getting antibiotics and steroids. Source: patient Exam Limitations: no limitations Date seen by provider: Oct 16, 2019 Time Seen by Provider: 14:10 Attending Physician Geovanny Gamino MD PCP Center/[facility] Consult Date of Admission Oct 15, 2019 at 15:49 Home Medications Home Medications Reviewed patient Home Medication Reconciliation performed by pharmacy medication reconciliations gem technician and/or nursing. Patients Allergies have been reviewed. Allergies Coded Allergies: Penicillins (Verified Adverse Reaction, Unknown, Abdominal Pain, 10/15/19) amoxicillin (Verified Adverse Reaction, Unknown, Abdominal Pain, 10/15/19) SNZ-Pirpfs-Yzdelw Hx Patient Social History Alcohol Use: Rarely Uses Recreational Drug Use: No Smoking Status: Current Everyday Smoker Type Used: Cigarettes Recent Foreign Travel: No Contact w/other who traveled: No Recent Hopitalizations: No Recent Infectious Disease Expo: No Immunizations Up To Date Date of Pneumonia Vaccine: Dec 24, 2017 Past Medical History PMHx: COPD Hypothyroidism Hypertension Migraines Degenerative disc disease SurgHx: Tubal ligation Hernia repair Oral surgery Review of Systems ([facility]) Constitutional: fever Respiratory: cough, short of breath Gastrointestinal: No abdominal pain, No constipation, No diarrhea, No nausea, No vomiting Genitourinary: No dysuria Skin: No rash Reviewed Test Results Reviewed Test Results Lab Laboratory Tests Test 10/15/19 14:20 10/15/19 14:30 10/15/19 14:50 10/16/19 01:25 Range/Units White Blood Count 22.9 H 17.2 H 4.3-11.0 10^3/uL Red Blood Count 3.73 L 3.18 L 4.35-5.85 10^6/uL Hemoglobin 11.9 10.1 L 11.5-16.0 G/DL Hematocrit 35 31 L 35-52 % Mean Corpuscular Volume 95 96 80-99 FL Mean Corpuscular Hemoglobin 32 32 25-34 PG Mean Corpuscular Hemoglobin Concent 34 33 32-36 G/DL Red Cell Distribution Width 14.3 14.5 10.0-14.5 % Platelet Count 362 324 130-400 10^3/uL Mean Platelet Volume 11.0 H 10.6 H 7.4-10.4 FL Neutrophils (%) (Auto) 81 H 42-75 % Lymphocytes (%) (Auto) 9 L 12-44 % Monocytes (%) (Auto) 9 0-12 % Eosinophils (%) (Auto) 0 0-10 % Basophils (%) (Auto) 0 0-10 % Neutrophils # (Auto) 18.6 H 1.8-7.8 X 10^3 Lymphocytes # (Auto) 2.1 1.0-4.0 X 10^3 Monocytes # (Auto) 2.1 H 0.0-1.0 X 10^3 Eosinophils # (Auto) 0.0 0.0-0.3 10^3/uL Basophils # (Auto) 0.0 0.0-0.1 10^3/uL Neutrophils % (Manual) 85 % Lymphocytes % (Manual) 8 % Monocytes % (Manual) 7 % Toxic Granulation 1+ Dohle Bodies SLIGHT Clumped Platelets SLIGHT Prothrombin Time 15.7 H 12.2-14.7 SEC INR Comment 1.2 0.8-1.4 Activated Partial Thromboplast Time 40 H 24-35 SEC Sodium Level 134 L 135-145 MMOL/L Potassium Level 3.8 3.6-5.0 MMOL/L Chloride Level 101 98-107 MMOL/L Carbon Dioxide Level 21 21-32 MMOL/L Anion Gap 12 5-14 MMOL/L Blood Urea Nitrogen 18 7-18 MG/DL Creatinine 1.30 0.60-1.30 MG/DL Estimat Glomerular Filtration Rate 43 BUN/Creatinine Ratio 14 Glucose Level 130 H 70-105 MG/DL Calcium Level 10.0 8.5-10.1 MG/DL Corrected Calcium 10.5 H 8.5-10.1 MG/DL Total Bilirubin 0.8 0.1-1.0 MG/DL Aspartate Amino Transf (AST/SGOT) 16 5-34 U/L Alanine Aminotransferase (ALT/SGPT) 17 0-55 U/L Alkaline Phosphatase 176 H 40-136 U/L C-Reactive Protein High Sensitivity 48.92 H 0.00-0.50 MG/DL Total Protein 7.6 6.4-8.2 GM/DL Albumin 3.4 3.2-4.5 GM/DL Lactic Acid Level 1.93 0.50-2.00 MMOL/L Urine Color YELLOW Urine Clarity CLOUDY Urine pH 6.0 5-9 Urine Specific [place] 1.025 H 1.016-1.022 Urine Protein 3+ H NEGATIVE Urine Glucose (UA) NEGATIVE NEGATIVE Urine Ketones 1+ H NEGATIVE Urine Nitrite NEGATIVE NEGATIVE Urine Bilirubin 2+ H NEGATIVE Urine Urobilinogen 2.0 < = 1.0 MG/DL Urine Leukocyte Esterase 3+ H NEGATIVE Urine RBC (Auto) 3+ H NEGATIVE Urine RBC 50-100 H /HPF Urine WBC TNTC H /HPF Urine Crystals NONE /LPF Urine Bacteria LARGE H /HPF Urine Casts NONE /LPF Urine Mucus NEGATIVE /LPF Urine Culture Indicated CULTURE PENDING Test 10/16/19 02:43 Range/Units Sodium Level 139 135-145 MMOL/L Potassium Level 3.5 L 3.6-5.0 MMOL/L Chloride Level 107 98-107 MMOL/L Carbon Dioxide Level 20 L 21-32 MMOL/L Anion Gap 12 5-14 MMOL/L Blood Urea Nitrogen 27 H 7-18 MG/DL Creatinine 1.42 H 0.60-1.30 MG/DL Estimat Glomerular Filtration Rate 39 BUN/Creatinine Ratio 19 Glucose Level 220 H 70-105 MG/DL Calcium Level 9.3 8.5-10.1 MG/DL Corrected Calcium 10.1 8.5-10.1 MG/DL Total Bilirubin 0.3 0.1-1.0 MG/DL Aspartate Amino Transf (AST/SGOT) 15 5-34 U/L Alanine Aminotransferase (ALT/SGPT) 18 0-55 U/L Alkaline Phosphatase 141 H 40-136 U/L Total Protein 6.4 6.4-8.2 GM/DL Albumin 3.0 L 3.2-4.5 GM/DL Radiology CXR 10/14 with bibasilar atalectasis Physical Exam-([facility]) Physical Exam Vital Signs VS - Last 72 Hours, by Label 10/15/19 10/15/19 10/15/19 10/15/19 14:08 14:08 14:30 14:37 Temp 37.9 37.9 Pulse 128 125 Resp 34 B/P (MAP) 141/83 (102) 144/88 (106) Pulse Ox 98 98 98 O2 Delivery Nasal Cannula Nasal Cannula Nasal Cannula O2 Flow Rate 6.00 6.00 10/15/19 10/15/19 10/15/19 10/15/19 15:00 15:07 15:30 16:00 Temp 37.5 Pulse 112 11 109 Resp B/P (MAP) 115/68 (84) 124/80 (95) 115/76 (89) Pulse Ox 97 99 96 O2 Delivery Nasal Cannula O2 Flow Rate 6.00 3.00 3.00 10/15/19 10/15/19 10/15/19 10/15/19 16:15 17:10 17:26 17:28 Temp 37.4 37.4 36.6 36.6 Pulse 107 93 87 88 Resp B/P (MAP) 127/92 (104) 113/91 99/61 (74) 99/61 Pulse Ox 97 99 95 98 O2 Delivery Nasal Cannula Nasal Cannula Nasal Cannula Nasal Cannula O2 Flow Rate 3.00 3.00 3.00 3.00 10/15/19 10/15/19 10/15/19 10/15/19 17:30 17:41 17:56 18:11 Pulse 88 86 82 Resp B/P (MAP) 103/67 (79) 100/61 (74) 99/61 (74) Pulse Ox 97 97 97 O2 Delivery Nasal Cannula Nasal Cannula Nasal Cannula Nasal Cannula O2 Flow Rate 3.00 3.00 3.00 3.00 10/15/19 10/15/19 10/15/19 10/15/19 18:26 18:40 19:00 19:00 Pulse 83 85 85 86 Resp B/P (MAP) 104/67 (79) 110/67 (81) 117/74 (88) Pulse Ox 97 97 96 O2 Delivery Nasal Cannula Nasal Cannula Nasal Cannula O2 Flow Rate 3.00 3.00 3.00 10/15/19 10/15/19 10/15/1920 19:18 20:00 20:20 21:00 Temp 36.1 Pulse 85 Resp 24 B/P (MAP) 118/76 (90) Pulse Ox 96 96 97 O2 Delivery Nasal Cannula Nasal Cannula Nasal Cannula Nasal Cannula O2 Flow Rate 3.00 3.00 3.00 2.00 10/15/19 10/16/19 10/16/19 10/16/19 21:25 00:00 00:00 01:00 Temp 36.0 Pulse 82 71 Resp 22 B/P (MAP) 117/77 (90) Pulse Ox 97 96 96 O2 Delivery Nasal Cannula Nasal Cannula Nasal Cannula O2 Flow Rate 2.00 3.00 3.00 FiO2 28 10/16/19 10/16/19 10/16/19 10/16/19 02:10 04:00 04:00 06:38 Temp 36.3 Pulse 76 71 Resp 18 B/P (MAP) 117/74 (88) Pulse Ox 97 96 96 O2 Delivery Nasal Cannula Nasal Cannula Nasal Cannula O2 Flow Rate 2.00 3.00 3.00 FiO2 28 10/16/19 10/16/19 10/16/19 10/16/19 06:57 08:36 08:41 08:43 Temp 36.1 Pulse 79 Resp 24 B/P (MAP) 150/94 (112) Pulse Ox 98 93 93 O2 Delivery Nasal Cannula Nasal Cannula Nasal Cannula Nasal Cannula O2 Flow Rate 1.00 0.50 0.50 0.50 10/16/19 10/16/19 10/16/19 10/16/19 10:34 12:07 12:11 12:39 Temp 36.6 Pulse 77 76 Resp 24 B/P (MAP) 147/90 (109) Pulse Ox 95 95 95 O2 Delivery Nasal Cannula Nasal Cannula Nasal Cannula O2 Flow Rate 1.00 1.00 1.00 10/16/19 10/16/19 15:15 15:18 Temp 36.3 Pulse 81 Resp 24 B/P (MAP) 137/75 (95) Pulse Ox 96 O2 Delivery Nasal Cannula Nasal Cannula O2 Flow Rate 1.00 1.00 Capillary Refill : Less Than 3 Seconds General Appearance: WD/WN, no apparent distress Respiratory: decreased breath sounds, wheezing Cardiovascular: regular rate, rhythm, no murmur Gastrointestinal: normal bowel sounds, non tender, soft Extremities: no pedal edema Neurologic/Psychiatric: normal mood/affect Skin: normal color, warm/dry Assessment/Plan Assessment/Plan Admission Status: Inpatient Order (span 2 midnights) Reason for Inpatient Admission: Sepsis, severe COPD exacerbation (1) Urinary tract infection Status: Acute Assessment & Plan: Ceftriaxone empirically, culture pending. Qualifiers: Qualified Codes: N39.0 - Urinary tract infection, site not specified (2) Sepsis Status: Acute Assessment & Plan: High WBC, tachycardia on admit. Started on ceftriaxone and IVF. WBC decreased today. Qualifiers: Qualified Codes: A41.9 - Sepsis, unspecified organism (3) COPD with exacerbation Status: Acute Assessment & Plan: Solumedrol, albuterol inhaler. Duonebs if unable to adequately use albuterol inhaler. COVID pending from outpatient swab day prior to admit. (4) Hypertension Status: Chronic (5) Hypothyroidism Status: Chronic (6) INGE (acute kidney injury) Assessment & Plan: Continue NS @ 150, monitor closely. (7) Hypokalemia Status: Acute (8) DVT prophylaxis Status: Acute Assessment & Plan: Enoxaparin Clinical Quality Measures DVT/VTE Risk/Contraindication: Risk Factor Score Per Nursin RFS Level Per Nursing on Admit: 4+=Very High GEOVANNY GAMINO MD Oct 16, 2019 08:37
[2019-10-16 12:07] VITALS: BP 147/90
--- NOTE | 2019-10-16 12:08 | Physician Query Clarification ---
PQ-Link Manifestation-Etiology Admission/Discharge Admission Date: Oct 15, 2019 at 15:49 Discharge Date: The medical record reflects the following clinical scenario: History/Risk Factors: Sepsis UTI Acute kidney injury Clinical Findings: WBC 22.9, T 37.9, P 128, Resp 24, BP 141/83, Lactic acid 1.93, Creatinine 1.30 rising to 1.42, BUN 14 rising to 19 and eGFR 43 dropping to 39. Treatment:IV Rocephin 1,000mg, IV Sodium Chloride 1,000ml@1,000mls/hr. Question: Can you specify if the Acute Kidney Injury is due to/associated with Sepsis? Please document a response in the Progress Note or Discharge Summary. 1. Yes - Acute kidney injury is due to/associated with sepsis. 2. No - Acute kidney injury is not due to/associated with sepsis. 3. Other, with explanation of the clinical findings. 4. Clinically undetermined, no explanation for the clinical findings. PHYSICIAN RESPONSE Manifestation due to/assoic: Yes Please remember a lack of response to the above will prompt a phone page by [facility]Coding staff. In responding to this query, please exercise your independent professional judgment. The purpose of this communication is to more accurately reflect the complexity of your patients condition. The fact that a question is asked does not imply that any particular answer is desired or expected. Thank you for your timely response to this clarification. Requestors name: Joyce Zhao [facility] Phone # ext [phone] or [phone] THIS PHYSICIAN QUERY FORM IS A PERMANENT PART OF THE MEDICAL RECORD JOYCE ZHAO Oct 16, 2019 12:08 GEOVANNY JOE MD Oct 17, 2019 16:15
[2019-10-16] MEDS ORDERED: ACET-2267 PO (14:00)
[2019-10-16] MEDS ORDERED: HYDR-83 PO ×2 (14:00)
[2019-10-16] MEDS ORDERED: BUDE10.2 IH (14:00)
[2019-10-16] MEDS ORDERED: CETI10CA PO (14:00)
[2019-10-16] MEDS ORDERED: DIPH25CA79 PO (14:00)
[2019-10-16] MEDS ORDERED: RT-ALBUINH IH (14:00)
[2019-10-16] MEDS ORDERED: LISI10TA2 PO (14:00)
[2019-10-16] MEDS ORDERED: ASPI-789 PO (14:00)
[2019-10-16] MEDS ORDERED: cefTRIAXone 1,000 MG/SWFI 10 ML IV PUSH IV SCH ×2 (15:00)
[2019-10-16 15:15] VITALS: BP 137/75
--- NOTE | 2019-10-16 15:34 | NUR ---
SPOKE WITH THE PT (I CALLED HER ROOM PHONE) WENT THRU THE EXT MED HISTORY AND CALLED [facility] TO COMPLETE THE MED REC PT SAYS SHE USES PROAIR AND SYMBICORT AND GETS THEM THRU [facility] FROM [facility]- I CALLED AND HAD TO LEAVE A MESSAGE TO GET FILL DATES. WHEN I HEAR BACK FROM THEM I WILL UPDATE MED REC/ NOTES NEEDED OTC: FRANNY TAPIA TYLENOL EXCEDRIN Addendum: 10/17/19 at 1117 by NEVA ELLER CPhT AT THE TIME OF DISCHARGE I STILL HAVE NOT HEARD BACK FROM THE [facility] ABOUT THE PATIENTS INHALERS
--- NOTE | 2019-10-16 15:42 | NUR ---
CM/SS: Visited with pt as to plan for discharge Plan: Pt to return home with no identified services needed. Summary: Spoke with pt via phone due to her isolation status. This pt is known to this worker from the community having cared for her mother on hospice. Pt reports she is feeling better and that she has previously had a UTI and never seemed to get over it. Pt reports that she had go back to the doctor and she has now ended up here. Pt reports her family is doing good and that they recently had a new grandchild. Pt reports spouse is still driving a truck and oldest grandchild has her learning permit. Overall pt reports being ready to leave, however is encouraged to remain until the physician gives her ok for her to leave. She does verbalize understanding. Pt reports she needs a hair tie and deodorant. This information is passed along to the RN.
[2019-10-16] MEDS ORDERED: HYDROcodone/APAP 5 MG/325 MG (LORTAB) TAB PO PRN (18:00)
[2019-10-16] MEDS ORDERED: NON-FORMULARY MEDICATION 1 EA EA (Diphenhydramine HCl (Benadryl) 50 MG) PO PRN (18:00)
[2019-10-16] MEDS ORDERED: diphenhydrAMINE 25 MG TAB (BENADRYL) PO PRN (18:15)
[2019-10-16 20:00] VITALS: BP 152/91
[2019-10-16] MEDS ORDERED: HYDROcodone/APAP 5 MG/325 MG (LORTAB) TAB PO SCH (21:00)
[2019-10-16] MEDS ORDERED: NON-FORMULARY MEDICATION 1 EA EA (Budesonide/Formoterol Fumarate (Symbicort 160-4.5 Mcg In IH SCH (21:00)
[2019-10-16] MEDS: ENOXAPARIN 40 MG/0.4 ML (LOVENOX) SYR SQ SCH (21:20)
[2019-10-16] MEDS: ADVAIR HFA 115/21 MCG INHALER 8 GM IH SCH (22:44)
[2019-10-17] VITALS: BP 155/88
[2019-10-17] MEDS: RT-ALBUTEROL INHALER HFA (VENTOLIN HFA) 8 GM IH SCH ×3 (02:38→10:56)
[2019-10-17] MEDS: methylPREDNISolone 40 MG/ML (Solu-MEDROL) VIAL IV SCH (03:26)
[2019-10-17 03:36] LABS: HEMOGLOBIN 9.8 G/DL (11.5-16.0); MEAN PLATELET VOLUME 10.8 FL (7.4-10.4); RED CELL DISTRIBUTION WIDTH 14.4 % (10.0-14.5); WHITE BLOOD COUNT 27.1 10^3/uL (4.3-11.0)
[2019-10-17 03:56] LABS: CALCIUM 9.2 MG/DL (8.5-10.1); CREATININE SERUM 1.09 MG/DL (0.60-1.30); POTASSIUM 3.6 MMOL/L (3.6-5.0)
[2019-10-17 04:00] VITALS: BP 137/73
[2019-10-17] MEDS: NS IV 1000 ML 1,000 ML IV SCH ×2 (05:35→13:16)
[2019-10-17] MEDS: ADVAIR HFA 115/21 MCG INHALER 8 GM IH SCH (07:22)
[2019-10-17 08:00] VITALS: BP 142/83
[2019-10-17] MEDS ORDERED: NON-FORMULARY MEDICATION 1 EA EA (Cetirizine HCl (Zyrtec) 10 MG) PO SCH (09:00)
[2019-10-17] MEDS ORDERED: LORATADINE (CLARITIN) 10 MG TAB PO SCH (09:00)
[2019-10-17] MEDS ORDERED: CEFD300C3 PO (11:12)
[2019-10-17] MEDS ORDERED: PRD10T PO (11:12)
--- NOTE | 2019-10-17 11:17 | Discharge Summary ---
Discharge Summary Hospital Course Problems/Diagnosis: (1) Urinary tract infection Status: Acute Assessment & Plan: Ceftriaxone empirically started. Urine culture with proteus mirabilis resistant only to nitrofurantoin, blood culture prelim with proteus species, final pending, discharged with cefdinir for 10 days. Qualifiers: Qualified Codes: N39.0 - Urinary tract infection, site not specified (2) Sepsis Status: Resolved Resolution Date/Time: 10/16/19 @ 11:13 Assessment & Plan: Secondary to UTI. High WBC, tachycardia on admit. Afebrile, no tachycardia for over 24 hours, WBC remains elevated likely secondary to IV steroids for COPD exacerbation. Discharged on cefdinir as noted above. Qualifiers: Qualified Codes: A41.9 - Sepsis, unspecified organism (3) COPD with exacerbation Status: Acute Assessment & Plan: Solumedrol, albuterol inhaler. Duonebs if unable to adequately use albuterol inhaler. COVID pending from outpatient swab day prior to admit. 10/16 down to less than home baseline oxygen requirement, requesting discharge. Sent with prednisone taper, continue Symbicort and albuterol. COVID19 result still pending, instructed to stay on home isolation until she hears from the health department. Strongly encouraged smoking cessation, she states she will not restart. (4) Hypertension Status: Chronic Qualifiers: Qualified Codes: I10 - Essential (primary) hypertension (5) Hypothyroidism Status: Chronic (6) INGE (acute kidney injury) Status: Resolved Resolution Date/Time: 10/17/19 @ 11:15 Assessment & Plan: Continue NS @ 150, monitor closely. Resolved. (7) Hypokalemia Status: Resolved Resolution Date/Time: 10/17/19 @ 11:15 Hospital Course Date of Admission: Oct 15, 2019 at 15:49 Admission Diagnosis : Family Physician/Provider: Digna Srinivasan Date of Discharge: 10/17/19 Discharge Diagnosis: See problem list Hospital Course: See problem list Labs and Pending Lab Test: Laboratory Tests 10/17/19 03:26: White Blood Count 27.1H, Red Blood Count 3.04L, Hemoglobin 9.8L, Hematocrit 29L, Mean Corpuscular Volume 97, Mean Corpuscular Hemoglobin 32, Mean Corpuscular Hemoglobin Concent 33, Red Cell Distribution Width 14.4, Platelet Count 389, Mean Platelet Volume 10.8H, Sodium Level 140, Potassium Level 3.6, Chloride Level 109H, Carbon Dioxide Level 19L, Anion Gap 12, Blood Urea Nitrogen 29H, Creatinine 1.09, Estimat Glomerular Filtration Rate 52, BUN/Creatinine Ratio 27, Glucose Level 256H, Calcium Level 9.2 Microbiology 10/15/19 Urine Culture - Final, Complete Mixed Bacterial Linnea Proteus mirabilis Gram Negative Bo 10/15/19 Influenza Types A,B Antigen (DUSTY) - Final, Complete 10/15/19 Blood Culture - Preliminary, Resulted Proteus mirabilis Testing In Progress Home Meds Active Reported Symbicort 160-4.5 Mcg Inhaler (Budesonide/Formoterol Fumarate) 10.2 Gm Hfa.aer.ad 2 Puff IH BID Proair Hfa (Albuterol Sulfate) 1 Puff Puff 2 Puff IH Q4H PRN 1 PUFF = 90 MCG Excedrin Migraine Caplet (Aspirin/Acetaminophen/Caffeine) 1 Each Tablet 2 Each PO Q6-8HR PRN Tylenol Extra Strength (Acetaminophen) 500 Mg Tablet 1,000 Mg PO Q8H PRN Benadryl (Diphenhydramine HCl) 25 Mg Capsule 50 Mg PO HS PRN Zyrtec (Cetirizine HCl) 10 Mg Capsule 10 Mg PO DAILY Lisinopril 10 Mg Tablet 10 Mg PO HS Hydrocodone-Acetamin 5-325 mg (Hydrocodone/Acetaminophen) 1 Each Tablet 1 Each PO HS Hydrocodone-Acetamin 5-325 mg (Hydrocodone/Acetaminophen) 1 Each Tablet 1-2 Ea PO DAILY Assessment/Pt DC Instructions Follow up with primary provider within a week of discharge. (Wait for instructions from health department on whether you are safe to go into clinic, may need televisit). Discharge Diet: Regular Diet Activity as Tolerated: Yes Discharge Physical Examination Allergies: Coded Allergies: Penicillins (Verified Adverse Reaction, Unknown, Abdominal Pain, 10/15/19) amoxicillin (Verified Adverse Reaction, Unknown, Abdominal Pain, 10/15/19) General Appearance: No Apparent Distress, WD/WN Respiratory: No Accessory Muscle Use, No Respiratory Distress, Wheezing Cardiovascular: Regular Rate, Rhythm, No Murmur Gastrointestinal: Normal Bowel Sounds, Non Tender, Soft Extremity: No Pedal Edema Skin: Normal Color, Warm/Dry Neurologic/Psychiatric: Alert, Normal Mood/Affect Copy Copies To 1: Gloria Srinivasan Clinical Quality Measures DVT/VTE Risk/Contraindication: Risk Factor Score Per Nursin RFS Level Per Nursing on Admit: 4+=Very High GEOVANNY JOE MD Oct 17, 2019 11:17
[2019-10-17 12:00] VITALS: BP 146/92
[2019-10-17] MEDS ORDERED: methylPREDNISolone 40 MG/ML (Solu-MEDROL) VIAL IV SCH (15:00)
== END 2019-10-17 12:55 | disposition home or self-care (01) | DRG 872 ==
LOC: EDUNIT# 14:07 → ER 14:08 → CSD 15:49
PROVIDERS: ADMIT Family Medicine; ATTEND Family Medicine
DX: A41.9 Sepsis, unspecified organism (principal); N39.0 Urinary tract infection, site not specified; N17.9 Acute kidney failure, unspecified; J44.1 Chronic obstructive pulmonary disease with (acute) exacerbation; R06.03 Acute respiratory distress; I10 Essential (primary) hypertension; R65.20 Severe sepsis without septic shock; Z66 Do not resuscitate; E03.9 Hypothyroidism, unspecified; F17.210 Nicotine dependence, cigarettes, uncomplicated; G43.909 Migraine, unspecified, not intractable, without status migrainosus; E87.6 Hypokalemia; M54.9 Dorsalgia, unspecified; Z99.81 Dependence on supplemental oxygen; Z88.0 Allergy status to penicillin; Z88.1 Allergy status to other antibiotic agents
CPT/HCPCS: 36415; 71045; 80048; 80053; 81000; 83605; 85007; 85027; 85610; 85730; 86141; 87040; 87077; 87088; 87186; 87804; 94640; 94760

== ENCOUNTER → 2022-05-18 | Outpatient (CLI) | payer OTHER ==
[~2022-05-18] MED LIST changes: +ACET-2267 PO; +ACHD5005 PO; +ALBU8.5H6 IH; +ASPI1TAB23 PO; +BUDE10.2 IH; -CATHETER FLUSH 10 ML SYR IV PRN; +CEFD300C3 PO; +CETI10CA PO; +DIPH25CA79 PO; -HOLD METFORMIN - RECEIVED CONTRAST 20 ML VIAL IV SCH; -IOHEXOL 350 MG/ML 100 ML (OMNIPAQUE 350) VIAL IV ONE; +LISI10TA25 PO; -NS 100 ML (IVPB) BAG IV ONE; +PRD10T PO
--- NOTE | 2022-05-18 18:42 | Diagnostic Imaging Report ---
EXAMINATION: Lumbosacral spine 2 or 3 views HISTORY: History of compression fracture. Pain. COMPARISON: None available. FINDINGS: 3 views of the lumbar spine demonstrate a compression deformity at L1 with approximately 50% loss of height along the superior endplate. This is age indeterminate given no priors available for comparison. Remaining vertebral body heights maintained. No subluxations. Facet hypertrophy noted at L5-S1. Intervertebral spaces maintained. Soft tissues unremarkable. IMPRESSION: 1. Age indeterminate compression deformity at L1. Dictated by: Dictated on workstation # [id number]
== END ==
LOC: RAD FS 17:40
PROVIDERS: ATTEND Nurse Practitioner
DX: M48.56XA Collapsed vertebra, not elsewhere classified, lumbar region, initial encounter for fracture (principal)
CPT/HCPCS: 72100